=== PATIENT | female | born 1995 | race American Indian/Alaskan Native ===

== ENCOUNTER 2017-07-26 09:02 | Emergency (ER) | payer SELFPAY ==
[2017-07-26 09:11] VITALS: BP 117/80
[2017-07-26] MEDS ORDERED: FIORICET PO ONE (10:43)
--- NOTE | 2017-07-26 10:51 | Emergency Department Report ---
ED Headache HPI - General Chief Complaint: Headache Stated Complaint: HEADACHE Time Seen by Provider: 07/26/17 10:40 Source: patient - History of Present Illness Initial Comments: Pt. is a 22 y.o female who presents to ED c/o intermittent, dull, non radiation 6/10 intensity type headache x 5 days. Pt. states pain located to left temporal region. She denies trauma, fall, injuries to the head or neck. Patient admits history of similar headaches Pt. denies fever, chills, nausea, vomiting, trauma, vision impairment, Timing/Duration: 24 hours Quality: mild Head Injury Location: temporal Recent Head Trauma: no recent headache/trauma, frequent headaches Associated Symptoms: denies: confusion, fatigue, facial pain, loss of consciousness, nausea/vomiting, seizures Allergies/Adverse Reactions: Allergies No Known Allergies Allergy (Unverified 07/26/17 09:11) Home Medications: Ambulatory Orders Butalb/Acetamin/Caff 50-325-40 [Fioricet] 1 tab PO TID #30 tablet 07/26/17 ED Review of Systems ROS: Stated complaint: HEADACHE Other details as noted in HPI Constitutional: denies: chills, fever Eyes: denies: eye pain, eye discharge, vision change ENT: denies: ear pain, throat pain Respiratory: denies: cough, shortness of breath, wheezing Cardiovascular: denies: chest pain, palpitations Endocrine: no symptoms reported Gastrointestinal: denies: abdominal pain, nausea, vomiting, diarrhea Genitourinary: denies: urgency, dysuria, discharge Musculoskeletal: denies: back pain, joint swelling, arthralgia Skin: denies: rash, lesions Neurological: headache. denies: weakness, numbness, paresthesias, confusion Psychiatric: denies: anxiety, depression Hematological/Lymphatic: denies: easy bleeding, easy bruising ED Past Medical Hx - Past Medical History Previous Medical History?: No - Surgical History Past Surgical History?: No - Social History Smoking Status: Never Smoker - Medications Home Medications: Home Medications Medication Instructions Recorded Confirmed Last Taken Type Butalb/Acetamin/Caff 50-325-40 1 tab PO TID #30 tablet 07/26/17 Unknown Rx [Fioricet] ED Physical Exam - General Limitations: No Limitations General appearance: alert, in no apparent distress - Head Head exam: Present: atraumatic, normocephalic - Eye Eye exam: Present: normal appearance, PERRL, EOMI Pupils: Present: normal accommodation - ENT ENT exam: Present: mucous membranes moist - Neck Neck exam: Present: normal inspection - Respiratory Respiratory exam: Present: normal lung sounds bilaterally. Absent: respiratory distress - Cardiovascular Cardiovascular Exam: Present: regular rate, normal rhythm. Absent: systolic murmur, diastolic murmur, rubs, gallop - GI/Abdominal GI/Abdominal exam: Present: soft, normal bowel sounds - Extremities Exam Extremities exam: Present: normal inspection - Back Exam Back exam: Present: normal inspection - Neurological Exam Neurological exam: Present: alert, oriented X3, CN II-XII intact, normal gait - Expanded Neurological Exam Expanded Patient oriented to: Present: person, place, time Speech: Present: fluid speech Cranial nerves: EOM's Intact: Normal Cerebellar function: Finger to Nose: Normal Sensory exam: Upper Extremity Light Touch: Normal, Lower Extremity Temperature: Normal Motor strength exam: RUE: 5, LUE: 5, RLE: 5, LLE: 5 DTR: knee (R): 2+, knee (L): 2+ Best Eye Response (Carlos): (4) open spontaneously Best Motor Response (Carlos): (6) obeys commands Best Verbal Response (Carlos): (5) oriented Carlos Total: 15 - Psychiatric Psychiatric exam: Present: normal affect, normal mood - Skin Skin exam: Present: warm, dry, intact, normal color. Absent: rash ED Course Vital Signs 07/26/17 09:07 Temperature 99.1 F Pulse Rate 93 H Respiratory 16 Rate Blood Pressure 117/80 O2 Sat by Pulse 99 Oximetry ED Medical Decision Making - Medical Decision Making [id number] female presents to ED with a headache migraine status ED course: Patient had no neuro deficit. Patient has history of migraines so we will referred to neurology. Discussed with patient if symptoms worsen or new onset of symptoms to return to ED otherwise follow-up with primary care physician Similar signs instructions and states she will follow up as needed. Critical care attestation.: If time is entered above; I have spent that time in minutes in the direct care of this critically ill patient, excluding procedure time. ED Disposition Clinical Impression: Migraine Qualifiers: Migraine type: unspecified Status migrainosus presence: without status migrainosus Disposition: -01 TO HOME OR SELFCARE Is pt being admited?: No Does the pt Need Aspirin: No Condition: Stable Instructions: Migraine Headache (ED), Acute Headache (ED) Additional Instructions: Make sure to follow up with the primary care physician as discussed. Take all your medications as you've been prescribed. If you have any worsening symptoms or develop new symptoms please return to ED immediately. Prescriptions: Butalb/Acetamin/Caff 50-325-40 [Fioricet] 1 tab PO TID #30 tablet [facility]Outside[facility] - 3-5 Days [facility] [Outside] - 3-5 Days [facility] [Outside] - 3-5 Days PRIMARY CARE, [Primary Care Provider] - 3-5 Days MIGUEL ZENG MD [Staff Physician] - 3-5 Days Forms: Accompanied Note, Work/School Release Form(ED) Time of Disposition: 11:09
== END 2017-07-26 11:19 | disposition home or self-care (01) ==
LOC: ED 09:02
DX: G43.909 Migraine, unspecified, not intractable, without status migrainosus (principal)
CPT/HCPCS: 99282

== ENCOUNTER 2020-01-14 10:16 | Outpatient (CLI) | payer OTHER | END 2020-01-14 12:10 | disposition home or self-care (01) | LOC: LAB 10:16 → APU 11:53 → LAB 12:10 | PROVIDERS: ATTEND Obstetrics & Gynecology | DX: O26.893 Other specified pregnancy related conditions, third trimester (principal); Z67.41 Type O blood, Rh negative; Z3A.28 28 weeks gestation of pregnancy | CPT/HCPCS: 86850; 86900; 86901; 96372; J2790 ==

== ENCOUNTER 2020-02-07 00:25 | Outpatient (CLI) | payer OTHER ==
[2020-02-07 00:51] VITALS: BP 134/73
[2020-02-07] MEDS ORDERED: LACTATED RINGERS 1,000 ML IV ONE (01:03)
[2020-02-07 01:26] LABS: Bacteria,Urine 1+ /HPF (Negative); Bilirubin,Urine NEG (Negative); Blood,Urine NEG (Negative); Color,Urine Yellow (Yellow); Mucus,Urine FEW /HPF; Protein,Urine <15 mg/dL mg/dL (Negative); RBC,Urine < 1.0 /HPF (0.0-6.0); Urobilinogen,Urine < 2.0 mg/dL (<2.0)
== END 2020-02-07 02:45 | disposition home or self-care (01) ==
LOC: TRG 00:25 → APU 00:31 → TRG 02:45
PROVIDERS: ATTEND Obstetrics & Gynecology
DX: O26.893 Other specified pregnancy related conditions, third trimester (principal); M54.9 Dorsalgia, unspecified; Z3A.31 31 weeks gestation of pregnancy
CPT/HCPCS: 59025; 81001; 96360; J7120

== ENCOUNTER 2020-04-06 18:23 | Inpatient (IN) | payer OTHER ==
[2020-04-06] MEDS ORDERED: miSOPROStol 200 MCG TAB PR PRN (20:26)
[2020-04-06] MEDS ORDERED: MINERAL OIL 30 ML ORAL LIQD PO PRN (20:26)
[2020-04-06] MEDS ORDERED: METHYLERGONOVINE MALEATE 0.2 MG/ML VIAL IM PRN (20:26)
[2020-04-06] MEDS ORDERED: NALOXONE 0.4 MG/1 ML INJ IV PRN (20:26)
[2020-04-06] MEDS ORDERED: TERBUTALINE 1 MG/1 ML INJ SUB-Q PRN (20:26)
[2020-04-06] MEDS ORDERED: fentaNYL 100 MCG/2 ML INJ IV PRN (20:26)
[2020-04-06] MEDS ORDERED: BUTORPHANOL 2 MG/1 ML INJ IV PRN (20:26)
[2020-04-06] MEDS ORDERED: ACETAMINOPHEN 325 MG TAB PO PRN (20:26)
[2020-04-06] MEDS ORDERED: OXYTOCIN DRIP 30 UNITS/500 ML BAG IV SCH ×2 (21:00)
--- NOTE | 2020-04-06 21:25 | Ultrasound Report ---
ULTRASOUND OBSTETRIC LIMITED INDICATION / CLINICAL INFORMATION: well being. Clinical Gestational Age (GA) in weeks, days: TECHNIQUE: Transabdominal. COMPARISON: None available. FINDINGS: Single live intrauterine . BREATHING MOVEMENT = 2 GROSS BODY MOVEMENT = 2 TONE = 2 QUALITATIVE AMNIOTIC FLUID VOLUME = 2 (greater than equal to one pocket of fluid measuring 2 cm in ve rtical axis). TOTAL BIOPHYSICAL SCORE = 8/8 HEART RATE (beats per minute): 131 AMNIOTIC FLUID INDEX (cm) = 3.2 (normal = 7-24 cm) PRESENTATION: Cephalic. ADDITIONAL FINDINGS: None. IMPRESSION: 1. Single live intrauterine with heart rate measuring 131 bpm. 2. BPP of 8/8. 3. Concern for oligohydramnios, with DANTE measuring 3.2 cm. Signer Name: Aleksandr Benitez MD Signed: 04/06/2020 9:20 PM Workstation Name: [id number]
--- NOTE | 2020-04-06 21:25 | Ultrasound Report ---
ULTRASOUND OBSTETRIC LIMITED INDICATION / CLINICAL INFORMATION: well being, decreased movement. Clinical Gestational Age (GA) in weeks, days: TECHNIQUE: Transabdominal. COMPARISON: None available. FINDINGS: Single live intrauterine . BREATHING MOVEMENT = 2 GROSS BODY MOVEMENT = 2 TONE = 2 QUALITATIVE AMNIOTIC FLUID VOLUME = 2 (greater than equal to one pocket of fluid measuring 2 cm in ve rtical axis). TOTAL BIOPHYSICAL SCORE = 8/8 HEART RATE (beats per minute): 131 AMNIOTIC FLUID INDEX (cm) = 3.2 (normal = 7-24 cm) PRESENTATION: Cephalic. ADDITIONAL FINDINGS: None. IMPRESSION: 1. Single live intrauterine with heart rate measuring 131 bpm. 2. BPP of 8/8. 3. Concern for oligohydramnios, with DANTE measuring 3.2 cm. Signer Name: Aleksandr Benitez MD Signed: 04/06/2020 9:20 PM Workstation Name: [id number]
[2020-04-06] MEDS ORDERED: DINOPROSTONE 10 MG VAG SUPP VG ONE (21:26)
[2020-04-06] MEDS ORDERED: LIDOCAINE (2%) 20 MG/1 ML VIAL 20 ML MDV INFILTRATI ONE (21:26)
[2020-04-06 21:32] LABS: Hematocrit 33.6 % (30.3-42.9); Hemoglobin 10.9 gm/dl (10.1-14.3); Mean Corpuscular HGB Conc 32 % (30-34); Mean Corpuscular Volume 73 fl (79-97); Platelet Count 268 K/mm3 (140-440); Red Blood Count 4.59 M/mm3 (3.65-5.03); Red Cell Distribution Width 16.3 % (13.2-15.2)
[2020-04-06] MEDS: LACTATED RINGERS 1,000 ML IV SCH (21:50)
[2020-04-07] MEDS: LACTATED RINGERS 1,000 ML IV SCH ×2 (05:53→20:15)
--- NOTE | 2020-04-07 08:09 | History and Physical Report ---
History of Present Illness Date of examination: 04/07/20 Date of admission: 04/06/20 20:26 Chief complaint: decreased movement History of present illness: 25y/o @ 40+2 weeks presents for induction of labor secondary to decreased movement at term. The patient initiated care in the first trimester. Her course is complicated by history of genital herpes without any recent prodrome. The patient is Rh- and also alpha thalassemia carrier her GBS is negative Past History Past Medical History: no pertinent history Past Surgical History: no surgical history Social history: single - Obstetrical History Expected Date of Delivery: 04/05/20 Actual Gestation: 40 Week(s) 2 Day(s) : 1 Para: 0 Hx # Term Pregnancies: 0 Number of Pregnancies: 0 Spontaneous Abortions: 0 Induced : 0 Number of Living Children: 0 Medications and Allergies Allergies Allergy/AdvReac Type Severity Reaction Status Date / Time No Known Allergies Allergy Verified 02/07/20 01:05 Home Medications Medication Instructions Recorded Confirmed Last Taken Type Vitamin 1 tab PO DAILY 04/06/20 04/06/20 04/06/20 History Active Meds: Active Medications Acetaminophen (Acetaminophen 325 Mg Tab) 650 mg PO Q4H PRN PRN Reason: Pain, Mild (1-3) Butorphanol Tartrate (Butorphanol 2 Mg/1 Ml Inj) 2 mg IV Q2H PRN PRN Reason: Pain , Severe (7-10) Ephedrine Sulfate (Ephedrine Sulfate 50 Mg/1 Ml Inj) 10 mg IV Q2M PRN PRN Reason: Hypotension Fentanyl (Fentanyl 100 Mcg/2 Ml Inj) 100 mcg IV Q2H PRN PRN Reason: Pain,Severe (7-10) LABOR PAIN Oxytocin/Sodium Chloride (Pitocin/Ns 30 Unit/500ml) 30 units in 500 mls @ 2 mls/hr IV TITR WILLIE; Protocol Lactated Ringer's (Lactated Ringers) 1,000 mls @ 125 mls/hr IV DIRECT WILLIE Last Admin: 04/07/20 05:53 Dose: 125 mls/hr Documented by: Oxytocin/Sodium Chloride (Pitocin/Ns 30 Unit/500ml) 30 units in 500 mls @ 40 mls/hr IV TITR WILLIE; Protocol Methylergonovine Maleate (Methylergonovine Maleate 0.2 Mg/Ml Vial) 0.2 mg IM ONCE PRN PRN Reason: Uterine Bleeding Mineral Oil (Mineral Oil 30 Ml Oral Liqd) 30 ml PO QHS PRN PRN Reason: Constipation Misoprostol (Misoprostol 200 Mcg Tab) 800 mcg RI ONCE PRN PRN Reason: Uterine Bleeding Naloxone HCl (Naloxone 0.4 Mg/1 Ml Inj) 0.1 mg IV Q2MIN PRN PRN Reason: Res Rate </= 8 or 02 SAT < 92% Ondansetron HCl (Ondansetron 4 Mg/2 Ml Inj) 4 mg IV Q8H PRN PRN Reason: Nausea And Vomiting Terbutaline Sulfate (Terbutaline 1 Mg/1 Ml Inj) 0.25 mg SUB-Q ONCE PRN PRN Reason: Hyperstimulation/Hypertonicity Review of Systems All systems: negative Genitourinary: no vaginal bleeding, no leakage of fluid - Vital Signs Vital signs: Vital Signs Pulse BP 106 H 110/67 04/06/20 18:48 04/06/20 18:48 Temp Pulse Resp BP Pulse Ox 98.1 F 97 H 16 125/70 04/07/20 07:30 04/07/20 07:40 04/07/20 07:30 04/07/20 07:40 - Physical Exam Breasts: Positive: deferred Cardiovascular: Regular rate Lungs: Positive: Clear to auscultation Abdomen: Positive: normal appearance Results Result Diagrams: 04/06/20 21:05 Abnormal lab results 04/06/20 Range/Units 21:05 WBC 12.7 H (4.5-11.0) K/mm3 MCV 73 L (79-97) fl MCH 24 L (28-32) pg RDW 16.3 H (13.2-15.2) % All other labs normal. Assessment and Plan - Patient Problems (1) Decreased movement Current Visit: Yes Status: Acute Plan to address problem: admit for induction of labor
[2020-04-07] MEDS ORDERED: miSOPROStol 25 MCG TAB PO PRN (11:00)
[2020-04-07] MEDS ORDERED: valACYclovir 500 MG TAB PO SCH (21:00)
[2020-04-08] MEDS: LACTATED RINGERS 1,000 ML IV SCH ×4 (02:43→15:16)
--- NOTE | 2020-04-08 05:46 | Anesthesia Consultation ---
Anesthesia Consult and Med Hx Date of service: 04/08/20 - Airway Anesthetic Teeth Evaluation: Poor ROM Head & Neck: Adequate Mental/Hyoid Distance: Adequate Mallampati Class: Class III Intubation Access Assessment: Probably Good - Pulmonary Exam CTA: Yes - Cardiac Exam Cardiac Exam: RRR - Pre-Operative Health Status ASA Pre-Surgery Classification: ASA2 Proposed Anesthetic Plan: Epidural - Pulmonary Hx Smoking: Yes Hx Asthma: No Hx Respiratory Symptoms: No SOB: No COPD: No Home Oxygen Therapy: No Hx Pneumonia: No Hx Sleep Apnea: No - Cardiovascular System Hx Hypertension: No Hx Coronary Artery Disease: No Hx Heart Attack/AMI: No Hx Angina: No Hx Percutaneous Transluminal Coronary Angioplasty (PTCA): No Hx Cardia Arrhythmia: No Hx Pacemaker: No Hx Internal Defibrillator: No Hx Valvular Heart Disease: No Hx Heart Murmur: No Hx Peripheral Vascular Disease: No - Central Nervous System Hx Neuromuscular Disorder: No Hx Seizures: No CVA: No Hx Back Pain: No Hx Psychiatric Problems: No - Gastrointestinal Hx Ulcer: No Hx Gastroesophageal Reflux Disease: Yes - Endocrine Hx Renal Disease: No Hx End Stage Renal Disease: No Hx Cirrhosis: No Hx Liver Disease: No Hx Insulin Dependent Diabetes: No Hx Non-Insulin Dependent Diabetes: No Hx Thyroid Disease: No Hx Hypothyroidism: No Hx Hyperthyroidism: No - Hematic Hx Anemia: No Hx Sickle Cell Disease: No - Other Systems Hx Alcohol Use: No Hx Substance Use: No Hx Cancer: No Hx Obesity: Yes
[2020-04-08] MEDS ORDERED: NALOXONE 2 MG/2 ML INJ IV PRN (06:25)
[2020-04-08] MEDS ORDERED: ePHEDrine SULFATE 50 MG/1 ML INJ IV PRN (06:25)
[2020-04-08] MEDS: ePHEDrine SULFATE 50 MG/1 ML INJ IV PRN ×2 (06:29→06:33)
--- NOTE | 2020-04-08 06:33 | Progress Note ---
Labor Epidural - Labor Epidural Start Time: 05:53 Stop Time: 06:11 Performed by:: DURGA THOMAS Procedure: Patient is requesting a laboring epidural for laboring pain. Patient IDed, H&P reviewed, all questions and concerns were answered, and consent was signed. Timeout was performed at bedside. Patient in sitting position. Sterile prep and drape was performed. [3] ml of 1% lidocaine skin wheal at L[3]- L [4]. 18- gauge Tuohy epidural needle was advanced to loss of resistance with air technique 8cm. Negative CSF negative blood. Epidural catheter advanced to [12] centimeters. [NEGATIVE] Aspiration [NEGATIVE] test dose. Sterile dressing applied. Patient tolerated procedure.
[2020-04-08] MEDS: fentaNYL-BUPIV 2 MCG/ML-0.125% 200 MCG/100 ML BAG EPIDURAL SCH ×2 (07:19→15:18)
--- NOTE | 2020-04-08 07:38 | Event Note ---
Date: 04/08/20 Patient being induced for decreased movement. SROM this am. Cervix dilated 5cm. Receiving pitocin.
[2020-04-08] MEDS: ONDANSETRON 4 MG/2 ML INJ IV PRN ×2 (10:08→19:27)
[2020-04-08] MEDS ORDERED: LIDOCAINE (2%) 20 MG/1 ML VIAL 20 ML MDV INFILTRATI ONE (19:15)
[2020-04-08] MEDS ORDERED: HYDROcodone/ACETAMINOPHEN 5-325 MG TAB PO PRN (21:51)
[2020-04-08] MEDS ORDERED: MAGNESIUM HYDROXIDE (MOM) ORAL LIQD UDC PO PRN (21:51)
[2020-04-08] MEDS ORDERED: ONDANSETRON 4 MG/2 ML INJ IV PRN (21:51)
[2020-04-08] MEDS ORDERED: PROMETHAZINE 25 MG TAB PO PRN (21:51)
[2020-04-08] MEDS ORDERED: PROMETHAZINE 25 MG RECT SUPP PR PRN (21:51)
[2020-04-08] MEDS ORDERED: diphenhydrAMINE 25 MG CAP PO PRN (21:51)
[2020-04-08] MEDS ORDERED: WITCH HAZEL/ GLYCERIN PAD TP PRN (21:51)
[2020-04-08] MEDS ORDERED: LANOLIN/ZINC/DIMETHICONE (LANSINOH) 7 GM TP PRN (21:51)
--- NOTE | 2020-04-08 21:51 | Procedure Note ---
OB Delivery Note - Delivery Date of Delivery: 04/08/20 Surgeon: SONAL BOJORQUEZ Estimated blood loss: other (150 mL) - Vaginal Delivery presentation: vertex Delivery position: OA Delivery augmentation: pitocin Delivery monitor: external FHT, external uterine, internal uterine Route of delivery: Delivery placenta: spontaneous Delivery cord: 3 umbilical vessels Delivery laceration: 1st degree, vaginal side wall Delivery repair: vicryl Anesthesia: epidural - Infant A at 1 minute: 8 at 5 minutes: 8 Gender: Male (Weight 7 pounds 11 ounces)
--- NOTE | 2020-04-08 22:35 | Post Anesthesia Evaluation ---
- Post Anesthesia Evaluation Patient Participated: Yes Airway Patent: Yes Stable Respiratory Function: Yes Nausea/Vomiting: No Temp > 96.8F: Yes Pain Manageable: Yes Adequeate Hydration: Yes Anesthesia Complications: No Block Receding Appropriately: Yes Patient on Ventilator: No
[2020-04-09] MEDS: IBUPROFEN 600 MG TAB PO SCH ×3 (05:37→18:15)
[2020-04-09 10:32] LABS: Hematocrit 30.4 % (30.3-42.9); Hemoglobin 9.9 gm/dl (10.1-14.3)
--- NOTE | 2020-04-09 14:28 | Progress Note ---
Assessment and Plan A: PPD1 s/p Poor pain management Vital signs stable P: [place] once Reviewed expectations of healing Anticipate d/c to home tonight or tomorrow Subjective - Subjective Date of service: 04/09/20 Principal diagnosis: s/p Interval history: PPD1 s/p Patient reports: appetite normal, voiding normally, pain poorly controlled, ambulating normally [place]: doing well, bottle feeding Objective - Vital Signs Latest vital signs: Vital Signs Temp Pulse Resp BP BP Pulse Ox 04/09/20 07:30 98.6 F 86 18 111/69 97 04/09/20 04:51 98.2 F 93 H 20 115/65 100 04/09/20 00:27 99.2 F 105 H 131/77 99 04/08/20 23:06 103 H 100 04/08/20 23:01 106 H 100 04/08/20 22:56 103 H 100 04/08/20 22:51 111 H 98 04/08/20 22:46 113 H 99 04/08/20 22:41 105 H 99 04/08/20 22:36 106 H 100 04/08/20 22:32 98.9 F 04/08/20 22:31 105 H 100 04/08/20 22:26 105 H 100 04/08/20 22:21 104 H 100 04/08/20 22:18 99.1 F 20 04/08/20 22:16 106 H 100 04/08/20 22:11 109 H 100 04/08/20 22:08 107 H 126/74 04/08/20 22:06 109 H 100 04/08/20 22:01 109 H 100 04/08/20 21:56 112 H 100 04/08/20 21:51 114 H 100 04/08/20 21:46 119 H 100 04/08/20 21:43 114 H 130/72 04/08/20 21:41 115 H 100 04/08/20 21:36 134 H 100 04/08/20 21:31 126 H 100 04/08/20 21:26 136 H 100 04/08/20 21:21 116 H 100 04/08/20 21:16 113 H 114/60 100 04/08/20 21:11 109 H 100 04/08/20 21:06 116 H 99 04/08/20 21:01 118 H 99 04/08/20 20:58 117 H 111/66 04/08/20 20:56 119 H 99 04/08/20 20:51 111 H 100 04/08/20 20:46 107 H 100 04/08/20 20:41 107 H 98 04/08/20 20:36 104 H 99 04/08/20 20:31 125 H 99 04/08/20 20:28 112 H 120/58 04/08/20 20:26 137 H 94 04/08/20 20:21 135 H 99 04/08/20 20:16 110 H 100 04/08/20 20:13 108 H 114/56 04/08/20 20:11 105 H 98 04/08/20 20:06 109 H 98 04/08/20 20:01 117 H 100 04/08/20 19:58 115 H 112/55 04/08/20 19:56 119 H 100 04/08/20 19:51 106 H 98 04/08/20 19:46 103 H 98 04/08/20 19:44 106 H 113/60 04/08/20 19:41 114 H 98 04/08/20 19:36 103 H 97 04/08/20 19:31 111 H 98 04/08/20 19:29 112 H 114/62 04/08/20 19:26 120 H 99 04/08/20 19:21 99 H 99 04/08/20 19:16 104 H 98 04/08/20 19:13 100 H 109/57 04/08/20 19:11 108 H 98 04/08/20 19:10 97.5 F L 20 04/08/20 19:06 102 H 99 04/08/20 19:01 113 H 106/51 98 04/08/20 18:56 119 H 100 04/08/20 18:51 107 H 100 04/08/20 18:46 116 H 99 04/08/20 18:43 113 H 101/58 04/08/20 18:41 110 H 98 04/08/20 18:36 113 H 98 04/08/20 18:31 103 H 98 04/08/20 18:28 108 H 102/63 04/08/20 18:26 106 H 98 04/08/20 18:21 104 H 98 04/08/20 18:16 103 H 98 04/08/20 18:13 109 H 101/59 04/08/20 18:11 106 H 98 04/08/20 18:06 102 H 98 04/08/20 18:01 113 H 98 04/08/20 17:59 102 H 107/61 04/08/20 17:56 106 H 98 04/08/20 17:51 104 H 99 04/08/20 17:46 103 H 98 04/08/20 17:43 106 H 93/56 04/08/20 17:42 111 H 96/56 04/08/20 17:41 98.5 F 107 H 16 96/56 98 04/08/20 17:36 104 H 98 04/08/20 17:31 101 H 98 04/08/20 17:28 103 H 90/54 04/08/20 17:26 107 H 98 04/08/20 17:21 100 H 101/55 99 04/08/20 17:16 99 H 98 04/08/20 17:13 105 H 90/47 04/08/20 17:11 105 H 98 04/08/20 17:06 103 H 100 04/08/20 17:01 112 H 100 04/08/20 16:58 104 H 114/62 04/08/20 16:56 106 H 97 04/08/20 16:51 104 H 97 04/08/20 16:46 106 H 97 04/08/20 16:43 100 H 114/64 04/08/20 16:41 107 H 97 04/08/20 16:36 102 H 97 04/08/20 16:31 107 H 99 04/08/20 16:28 104 H 112/64 04/08/20 16:26 103 H 98 04/08/20 16:21 104 H 97 04/08/20 16:16 105 H 99 04/08/20 16:13 110 H 117/71 04/08/20 16:11 111 H 99 04/08/20 16:06 112 H 100 04/08/20 16:01 111 H 99 04/08/20 15:58 109 H 129/77 04/08/20 15:56 112 H 98 04/08/20 15:51 106 H 99 04/08/20 15:46 106 H 100 04/08/20 15:43 116 H 114/65 04/08/20 15:41 107 H 99 04/08/20 15:36 103 H 100 04/08/20 15:31 99 H 99 04/08/20 15:28 100 H 110/66 04/08/20 15:26 97 H 99 04/08/20 15:23 96 H 107/64 04/08/20 15:21 101 H 84/48 99 04/08/20 15:16 103 H 99 04/08/20 15:11 100 H 99 04/08/20 15:06 100 H 99 04/08/20 15:01 98 H 99 04/08/20 15:00 99 H 105/61 04/08/20 14:56 94 H 99 04/08/20 14:51 102 H 99 04/08/20 14:46 109 H 99 04/08/20 14:43 100 H 96/56 04/08/20 14:41 103 H 98 04/08/20 14:36 100 H 98 04/08/20 14:31 94 H 99 04/08/20 14:30 99.4 F 20 04/08/20 14:28 102 H 94/55 Intake and Output 04/08/20 04/09/20 04/09/20 23:59 07:59 15:59 Intake Total 72.4 480 480 Output Total 1500 1400 300 Balance -1427.6 -920 180 Intake: IV 72.4 PITOCin/NS 30 UNIT/500ML 72.4 30 units In 500 ml @ 2 mls/hr IV TITR WILLIE Rx#: [id number] Oral 480 240 Intake, Free Water 240 Output: Urine 1500 1400 300 Indwelling Catheter 800 Self-Catheterization 700 Void 1400 300 Other: Total, Intake Amount 480 240 Total, Output Amount 700 800 300 # Voids Void 2 1 Estimated Blood Loss 150 - Exam Abdomen: Present: soft. Absent: distention, tenderness, guarding Uterus: Present: firm, fundal height below umbilicus. Absent: bogginess, tenderness Extremities: Present: normal - Labs Labs: Abnormal lab results 04/09/20 Range/Units 10:20 Hgb 9.9 L (10.1-14.3) gm/dl
[2020-04-10] MEDS: IBUPROFEN 600 MG TAB PO SCH ×2 (06:00)
--- NOTE | 2020-04-10 07:56 | Progress Note ---
Assessment and Plan A: PPD2 s/p Vital signs stable Acute anemia secondary to blood loss Bottle Feeding P: Discharge home today Ferrous Sulfate supplementation Subjective - Subjective Date of service: 04/10/20 Principal diagnosis: s/p Interval history: PPD2 s/p Patient reports: appetite normal, voiding normally, pain well controlled, ambulating normally : doing well, bottle feeding Objective - Vital Signs Latest vital signs: Vital Signs Temp Pulse Resp BP BP Pulse Ox 04/10/20 00:35 98.2 F 95 H 20 119/79 99 04/09/20 14:44 98.4 F 95 H 18 111/63 98 Intake and Output 04/09/20 04/09/20 04/10/20 15:59 23:59 07:59 Intake Total 1080 480 360 Output Total 300 Balance 780 480 360 Intake: Oral 480 240 360 Intake, Free Water 600 240 Output: Urine 300 Void 300 Other: Total, Intake Amount 240 240 240 Total, Output Amount 300 # Voids Void 1 2 1 - Exam Abdomen: Present: normal appearance, soft. Absent: distention, tenderness, guarding Uterus: Present: normal, firm, fundal height below umbilicus. Absent: bogginess, tenderness Extremities: Present: normal - Labs Labs: Abnormal lab results 04/09/20 Range/Units 10:20 Hgb 9.9 L (10.1-14.3) gm/dl
--- NOTE | 2020-04-10 08:00 | Discharge Summary ---
Providers - Providers Date of Admission: 04/06/20 20:26 Date of discharge: 04/10/20 Attending physician: THEODORE MUJICA Primary care physician: EITAN SAINZ MD Hospitalization Reason for admission: induction of labor (IOL for decreased movement) Delivery: Episiotomy: none Laceration: vaginal side wall, 1st degree complications: none Discharge diagnosis: IUP at term delivered baby: male Hospital course: Patient presented for induction of labor secondary to decreased movement. Progressed to . PP course uncomplicated. Disposition: DC-30 STILL A PATIENT Plan - Provider Discharge Summary Activity: routine, no sex for 6 weeks, no heavy lifting 4 weeks, no strenuous exercise Diet: routine Instructions: routine Additional instructions: [] Smoking cessation referral if applicable(refer to patient education folder for contact #) [] Refer to [facility] Booklet Call your doctor immediately for: * Fever > 100.5 * Heavy vaginal bleeding ( >1 pad per hour) * Severe persistent headache * Shortness of breath * Reddened, hot, painful area to leg or breast * Drainage or odor from incision. * Keep incision clean and dry at all times and follow doctor's instructions regarding bathing/showering - Follow up plan Follow up: PRIMARY CARE, [Primary Care Provider] - 7 Days
[2020-04-10 14:33] VITALS: BP 129/85
== END 2020-04-10 15:30 | disposition home or self-care (01) | DRG 775 ==
LOC: TRG 18:23 → APU 18:38 → TRG 20:26 → LD 20:26 → OB 04-08 23:13
PROVIDERS: ADMIT Obstetrics & Gynecology; ATTEND Obstetrics & Gynecology
PROC: 10E0XZZ Delivery of Products of Conception, External Approach (ICD-10-PCS; principal; 2020-04-08)
PROC: 3E0R3BZ Introduction of Anesthetic Agent into Spinal Canal, Percutaneous Approach (ICD-10-PCS; 2020-04-08)
PROC: 00HU33Z Insertion of Infusion Device into Spinal Canal, Percutaneous Approach (ICD-10-PCS; 2020-04-08)
PROC: 0HQ9XZZ Repair Perineum Skin, External Approach (ICD-10-PCS; 2020-04-08)
DX: O36.8130 Decreased fetal movements, third trimester, not applicable or unspecified (principal); Z37.0 Single live birth; Z3A.40 40 weeks gestation of pregnancy; O70.0 First degree perineal laceration during delivery; Z20.822 Contact with and (suspected) exposure to COVID-19; O99.02 Anemia complicating childbirth; D62 Acute posthemorrhagic anemia
CPT/HCPCS: 36415; 59200; 76815; 76819; 85014; 85018; 85027; 85460; 85461; 86592; 86850; 86900; 86901; G0378; J0595; J2405; J2590; J2790; J7120; U0003